=== PATIENT | male | born 1960 | race American Indian/Alaskan Native ===

== ENCOUNTER 2017-07-25 12:34 | Emergency (ER) | payer MEDICAID, OTHER ==
[2017-07-25 12:34] VITALS: BMI 26.4
[2017-07-25 12:57] VITALS: BP 130/82; PULSE 79; RESP 16; TEMP 99.2; O2SAT 99
--- NOTE | 2017-07-25 13:38 | ED PDOC ---
Arrival/HPI - General Chief Complaint: Upper Extremity Problem/Injury Time Seen by Provider: 07/25/17 13:03 Historian: Patient - History of Present Illness Narrative History of Present Illness (Text): 07/25/17 13:38 A 57 year old male, whose past medical history includes bening hypertension, kidney stones, myalgias, and palpitations, presents to the emergency department with right shoulder pain, which began 5 days ago after a mechanical fall. The patients reports his shoulder has been hurting ever since the fall and that resting his arm gives him relief, along with taking ibuprofen. He states the pain increased with movement. The patient admits to taking ibuprofen before coming to the emergency department and currently does not feel any pain. The patient denies any head trauma, fever, headaches, or any other complaints at this time. Time/Duration: < week (x 5 days ) Symptom Onset: Sudden Symptom Course: Unchanged Activities at Onset: Significant (fall ) Context: Home Past Medical History - Provider Review Nursing Documentation Reviewed: Yes - Infectious Disease Hx of Infectious Diseases: None - Tetanus Immunization Tetanus Immunization: Unknown - Cardiac Hx Cardiac Disorders: Yes Hx Cardiac Arrhythmia: Yes (AFIB) Hx Hypertension: Yes - Pulmonary Hx Respiratory Disorders: No - Neurological Hx Neurological Disorder: No - HEENT Hx HEENT Disorder: No - Renal Hx Renal Disorder: Yes Hx Kidney Stones: Yes - Endocrine/Metabolic Hx Endocrine Disorders: No - Hematological/Oncological Hx Blood Disorders: No - Integumentary Hx Dermatological Disorder: No - Musculoskeletal/Rheumatological Hx Musculoskeletal Disorders: No Hx Back Pain: Yes - Gastrointestinal Hx Gastrointestinal Disorders: No - Genitourinary/Gynecological Hx Genitourinary Disorders: Yes Hx Prostate Problems: Yes - Psychiatric Hx Psychophysiologic Disorder: No Hx Substance Use: No - Past Surgical History Past Surgical History: No Previous - Surgical History Other/Comment: EP Study, dental extraction - Anesthesia Hx Anesthesia: Yes Hx Anesthesia Reactions: No Hx Malignant Hyperthermia: No - Suicidal Assessment Feels Threatened In Home Enviroment: No Family/Social History - Physician Review Nursing Documentation Reviewed: Yes Family/Social History: Unknown Family HX Smoking Status: Never Smoked Hx Alcohol Use: Yes Hx Substance Use: No Allergies/Home Meds Allergies/Adverse Reactions: Allergies No Known Allergies Allergy (Verified 02/26/16 03:10) Home Medications: Home Meds Medication Instructions Recorded Confirmed Carvedilol [Coreg] 12.5 mg PO DAILY 09/29/15 07/25/17 Physical Exam - Physical Exam Narrative Physical Exam (Text): 07/25/17 13:39 - Review of Systems Constitutional: Normal. absent: Fatigue, Weight Change, Fevers Eyes: Normal ENT: denies sore throat, denies tristhmus Respiratory: Normal. absent: SOB, Cough, Sputum Cardiovascular: absent: Chest Pain, Palpitations, Syncope Gastrointestinal: Normal. absent: Abdominal Pain, Diarrhea, Nausea, Vomiting Genitourinary: Normal. absent: Dysuria, Frequency, Hematuria Musculoskeletal: shoulder injury. absent: Back Pain, Neck Pain Skin: no rashes, no erythema Neurological: absent: Focal Weakness Endocrine: Normal Hemo/Lymphatic: Normal Psychiatric: No suicidal or homicidal ideations Physical exam Patient appears age appropriate in no distress, speaking full sentences without difficulty - Systems Exam Head: Present: Atraumatic, Normocephalic Pupils: Present: PERRL Extroacular Muscles: Present: EOMI Conjunctiva: Present: Normal Mouth: Present: Moist Mucous Membranes Neck: Present: Normal Range of Motion. No: MIDLINE TENDERNESS, Paraspinal Tenderness Respiratory/Chest: Present: Clear to Auscultation, Good Air Exchange. No: Respiratory Distress, Accessory Muscle Use, Tachypneic Cardiovascular: Present: Regular Rate and Rhythm, Normal S1, S2, Peripheal Pulses Present. No: Murmurs Abdomen: Present: Normal Bowel Sounds. No: Tenderness, Distention, Peritoneal Signs, Rebound, Guarding Back: Present: Normal Inspection. No: Midline Tenderness, Paraspinal Tenderness Upper Extremity: Present: Shoulder and elbow both have full active and passive ROM 5/5 strength, distal neurovascular fully intact; Normal Inspection. No: pain upon palpation over clavicle, Cyanosis, Edema Lower Extremity: Present: Normal Inspection. No: Edema Neurological: Present: GCS=15, Speech Normal, cranial nerves II through XII fully intact with no cerebellar abnormality, neurosensory fully intact. No focal neurological deficits. Skin: Present: Warm, Dry, Normal Color. No: Rashes Lymphatic: Present: OX3, NI, NC Psychiatric: Present: Alert, Oriented x 3, Normal Insight, Normal Concentration Vital Signs Reviewed: Yes Vital Signs Temp Pulse Resp BP Pulse Ox 07/25/17 12:54 99.2 F 79 16 130/82 99 Temperature: Afebrile Blood Pressure: Normal Pulse: Regular Respiratory Rate: Normal Appearance: Positive for: Well-Appearing Pain Distress: None Mental Status: Positive for: Alert and Oriented X 3 Medical Decision Making ED Course and Treatment: 07/25/17 13:41 Impression: A 57 year old male with right shoulder pain after fall. Differential Diagnosis included but are not limited to: Sprain vs. strain vs. fracture Plan: -- Radiology: Right shoulder -- Reassess and disposition Progress Notes: 07/25/17 14:13 xray of shoulder shows no acute fx's or dislocations. interpreted by me. cary hitchcock had an extensive d/w pt that although xrays are negative for any acute bony abnormality, it is still very important to fu with pmd and ortho specialist for further w/u and testing such as MRI to r/o any ligamentous/tendenous/meniscal injury. Pt verbalized full understanding of above discussion. Pt states he understands to return to the ER right away for new or worsening symptoms or for inability to f/u with PMD or specialist as instructed. Patient states that he fully agrees with and understands discharge instructions. States that he agrees with the plan and disposition. Verbalized and repeated discharge instructions and plan. I have given the patient opportunity to ask any additional questions. - RAD Interpretation Radiology Orders: 07/25/17 13:18 SHOULDER RIGHT [RAD] Stat - Scribe Statement The provider has reviewed the documentation as recorded by the Meiibshital Argueta Provider Scribe Attestation: All medical record entries made by the Scribe were at my direction and personally dictated by me. I have reviewed the chart and agree that the record accurately reflects my personal performance of the history, physical exam, medical decision making, and the department course for this patient. I have also personally directed, reviewed, and agree with the discharge instructions and disposition. Disposition/Present on Arrival - Present on Arrival Any Indicators Present on Arrival: No History of DVT/PE: No History of Uncontrolled Diabetes: No Urinary Catheter: No History of Decub. Ulcer: No History Surgical Site Infection Following: None - Disposition Have Diagnosis and Disposition been Completed?: Yes Diagnosis: Shoulder injury Disposition: HOME/ ROUTINE Disposition Time: 14:15 Patient Plan: Discharge Condition: GOOD Discharge Instructions (ExitCare): Shoulder Sprain (ED) Additional Instructions: PLEASE RETURN TO THE EMERGENCY DEPARTMENT FOR NEW OR WORSENING SYMPTOMS. RETURN RIGHT AWAY IF YOU CANNOT FOLLOW UP WITH YOUR PRIMARY CARE DOCTOR, CLINIC, OR SPECIALIST IN 1-2 DAYS. Please take [id number] Motrin or Tylenol for pain per pharmacy instructions Referrals: PCP,NO [Primary Care Provider] - Follow up with primary Elodia Vergara MD [Staff Provider] - Follow up with primary Daryn Felder DO [Staff Provider] - Follow up with primary Forms: [facility] (Maltese), WORK NOTE
--- NOTE | 2017-07-25 14:16 | RAD ---
PROCEDURE: Radiographs of the Right Shoulder HISTORY: fall COMPARISON: No prior. FINDINGS: BONES: Normal. No fracture. JOINTS: Normal. Glenohumeral and acromioclavicular joints preserved. No osteoarthritis. SOFT TISSUES: Normal. OTHER FINDINGS: None. IMPRESSION: Normal radiographs of the right shoulder.
== END 2017-07-25 14:23 | disposition home or self-care (01) ==
LOC: ED 12:34
DX: S43.401A Unspecified sprain of right shoulder joint, initial encounter (principal); W18.30XA Fall on same level, unspecified, initial encounter; Y93.9 Activity, unspecified; Y92.9 Unspecified place or not applicable